=== PATIENT | male | born 1960 | race Caucasian/White ===

== ENCOUNTER 2021-02-24 11:44 | Emergency (ER) | payer OTHER, SELFPAY ==
[2021-02-24 14:09] VITALS: BP 127/89; PULSE 76; RESP 16; TEMP 36.2; O2SAT 99
--- NOTE | 2021-02-24 14:55 | ED.URI ---
HPI - URI/Sore Throat General Chief Complaint: Upper Respiratory Infection Stated Complaint: Headache,Cough,Runny Nose,Diarrhea Time Seen by Provider: 02/24/21 14:45 Source: patient and RN notes reviewed Mode of arrival: ambulatory Limitations: no limitations History of Present Illness HPI Narrative: Patient presents today complaining of a 2-day history of headache, rhinorrhea, cough, sneezing, congestion, and diarrhea. Denies fever, shortness of breath or chest pain. tested positive for days ago for COVID-19. He has tried no [id number]-[id number] treatment for his symptoms prior to arrival. MD elicited complaint: cough and rhinorrhea Related Data Home Medications Medication Instructions Recorded Confirmed flecainide 150 mg PO DAILY 02/24/21 02/24/21 Allergies Allergy/AdvReac Type Severity Reaction Status Date / Time No Known Allergies Allergy Verified 02/24/21 14:43 Review of Systems Review of Systems: CONSTITUTIONAL: Denies body aches, fever, chills, or sweats. EYES: Denies visual changes, redness, or discharge. ENT: Denies sore throat, or otalgia.+ Rhinorrhea congestion CARDIOVASCULAR: Denies chest pain, palpitations, or edema. RESPIRATORY: Denies dyspnea.+ Cough GASTROINTESTINAL: Denies abdominal pain, nausea, vomiting. + Diarrhea GENITOURINARY: Denies dysuria or hematuria. SKIN: Denies rash, itching, or wounds. MUSCULOSKELETAL: Denies back pain, joint pain, or myalgia. NEUROLOGIC: Denies numbness, tingling, or weakness.+ Headache PSYCH: Denies depression or anxiety. PMFSH Comments At time of signature, I have reviewed and agree with nursing past medical, surgical, social and family history unless otherwise noted. Please see nursing chart for further information. There is no relevant family history pertinent to the presenting complaint Exam Narrative: GENERAL: Well-appearing, well-nourished, and in no acute distress. HEAD: Normocephalic, atraumatic. EYES: EOMI. No redness or drainage. Conjunctivae normal. ENT: Mucous membranes pink and moist. Nares mildly congested. No rhinorrhea. TMs normal bilaterally. Throat normal. Uvula midline. NECK: Normal AROM. Supple. No lymphadenopathy. CHEST: No respiratory distress. Clear to auscultation. HEART: Regular rate and rhythm. No murmur appreciated. Normal peripheral pulses. ABDOMEN: Soft, nontender, nondistended, normal active bowel sounds. EXTREMITIES: Normal range of motion. No edema. SKIN: Warm, dry, no rash. Capillary refill normal. Normal skin turgor. NEURO: No focal deficits. Alert and oriented x3. Gait steady. PSYCH: Normal affect. No signs of depression or anxiety. Course Course Level of Care: Express Care Visit Vital Signs Vital signs: Vital Signs Temperature 97.2 F L 02/24/21 14:09 Pulse Rate 76 02/24/21 14:09 Respiratory Rate 16 02/24/21 14:09 Blood Pressure 127/89 02/24/21 14:09 Pulse Oximetry 99 02/24/21 14:09 Temperature 97.2 F L 02/24/21 14:09 Pulse Rate 76 02/24/21 14:09 Respiratory Rate 16 02/24/21 14:09 Blood Pressure 127/89 02/24/21 14:09 Pulse Oximetry 99 02/24/21 14:09 Reviewed. Pt has been instructed to follow up with his PCP regarding his elevated blood pressure today. MDM - URI/Sore Throat Differential Diagnosis Differential diagnosis: Likely upper respiratory infection, sinusitis, viral infection and other (COVID-19) Lab Data Attestation: I reviewed the patient's lab results. Lab results narrative: Rapid COVID-19 test negative Critical Care Time Critical Care Time Critical Care Time: No Discharge Plan Discharge Clinical Impression: Viral illness Patient Disposition: Home, Self-Care Condition: Stable Instructions: Antibiotic Form Additional Instructions: Your rapid COVID-19 test is negative today. You have a PCR test pending and will be notified of the results by telephone in a few days. Take [id number] medication such as Mucinex, Sudafed, or Flonase for your
[2021-02-25 13:42] LABS: SARS-CoV-2 RNA PCR Positive
== END 2021-02-24 15:05 | disposition home or self-care (01) ==
PROVIDERS: Emergency Provider Nurse Practitioner
DX: U07.1 COVID-19 (principal); I48.91 Unspecified atrial fibrillation
CPT/HCPCS: 87426; 99203; C9803; G0463; U0003; U0005